=== PATIENT | female | born 1980 | race Caucasian/White ===

== ENCOUNTER → 2017-01-21 | Outpatient (CLI) | payer BC ==
[~2017-01-21] MED LIST: MOTRIN 600600 MG/TAB PO; PRENATAL1 TA1 PO; SENOKOT S 50 MG1 TAB PO
== END ==
LOC: COL.RAD 08:05
DX: M54.18 Radiculopathy, sacral and sacrococcygeal region (principal); M51.27 Other intervertebral disc displacement, lumbosacral region; M48.07 Spinal stenosis, lumbosacral region

== ENCOUNTER → 2017-04-05 | Outpatient (CLI) | payer BC ==
[~2017-04-05] VITALS: Ht 157.5 cm; Wt 53.4 kg
[2017-04-05 09:18] VITALS: BP 109/63; PULSE 62
[2017-04-05 10:05] VITALS: BP 109/67; PULSE 62
== END ==
LOC: COL.RAD 09:00
DX: M54.16 Radiculopathy, lumbar region (principal)
CPT/HCPCS: J3301

== ENCOUNTER → 2020-03-05 | Outpatient (CLI) | payer BC | LOC: MC.RAD 02-13 09:15 | DX: Z12.31 Encounter for screening mammogram for malignant neoplasm of breast (principal) ==

== ENCOUNTER → 2020-05-30 | Outpatient (CLI) | payer BC | LOC: COL.RAD 05-29 11:00 | DX: R60.0 Localized edema (principal); R53.83 Other fatigue; R63.5 Abnormal weight gain | CPT/HCPCS: Q9967 ==

== ENCOUNTER → 2023-12-23 | Outpatient (CLI) | payer BC | LOC: MC.RAD 10:55 | DX: Z12.31 Encounter for screening mammogram for malignant neoplasm of breast (principal) ==